=== PATIENT | female | born 1990 | race Two or more races ===

== ENCOUNTER 2018-10-08 20:37 | Emergency (ER) | payer SELFPAY ==
[~2018-10-08] VITALS: Ht 152.4 cm; Wt 65.8 kg
[2018-10-09] MEDS ORDERED: BACLOFEN 10 MG TAB PO ONE (01:30)
[2018-10-09] MEDS ORDERED: HYDROcodone-ACET 10/325MG TAB PO ONE (01:30)
[2018-10-09 01:38] VITALS: BP 113/86
== END 2018-10-09 02:00 | disposition home or self-care (01) ==
LOC: ER 20:42
DX: S50.01XA Contusion of right elbow, initial encounter (principal); M54.2 Cervicalgia; Y08.89XA Assault by other specified means, initial encounter; Y93.89 Activity, other specified; Y99.8 Other external cause status; Y92.89 Other specified places as the place of occurrence of the external cause
CPT/HCPCS: 70450; 73080; 81025